=== PATIENT | male | born 1960 | race Caucasian/White ===

== ENCOUNTER 2020-10-05 04:07 | Observation (INO) | payer OTHER ==
[~2020-10-05] VITALS: Ht 177.8 cm; Wt 132.9 kg
[2020-10-05] VITALS (10 sets, daily range): BP systolic 133–170; BP diastolic 53–91
[2020-10-05] MEDS ORDERED: ONDANSETRON 4MG INJ ONE (06:05)
[2020-10-05] MEDS ORDERED: MECLIZINE HCL 25 MG TABLET ONE (06:05)
[2020-10-05] MEDS ORDERED: ONDANSETRON 4MG INJ IVP ONE (06:30)
[2020-10-05] MEDS ORDERED: MECLIZINE HCL 25 MG TABLET PO ONE (06:30)
[2020-10-05 08:08] LABS: BASOPHILS % (AUTO) 0.1 % (0.0-5.0); EOSINOPHILS % (AUTO) 0.3 % (0.0-8.0); HEMATOCRIT 44.6 % (42-54); LYMPHOCYTES % (AUTO) 14.9 % (21.0-51.0); MEAN CORPUSCULAR HEMOGLOBIN 30.2 pg (27.0-33.0); MEAN CORPUSCULAR HGB CONC 31.8 g/dL (32.0-36.0); MEAN CORPUSCULAR VOLUME 94.9 fL (79-99); MONOCYTES % (AUTO) 2.8 % (3.0-13.0); NEUTROPHILS % (AUTO) 81.5 % (40.0-77.0); PLATELET COUNT (AUTO) 222 K/uL (130-400); RED CELL DISTRIBUTION WIDTH 12.3 % (11.0-15.5); WHITE BLOOD COUNT (AUTO) 9.3 K/uL (4.8-10.8)
[2020-10-05 08:26] LABS: ALBUMIN 3.4 g/dL (3.5-5.0); BILIRUBIN,TOTAL 0.3 mg/dL (0.2-1.0); POTASSIUM 4.2 mmol/L (3.5-5.1); TOTAL PROTEIN, SERUM 7.4 g/dL (6.0-8.3)
[2020-10-05 08:40] LABS: B-TYPE NATRIURETIC PEPTIDE 239 pg/mL (0-100)
[2020-10-05] MEDS ORDERED: LACTULOSE 20 GM/30 ML UDCUP PO PRN (10:00)
[2020-10-05] MEDS ORDERED: ACETAMINOPHEN 325 MG TAB PO PRN ×2 (10:00)
[2020-10-05] MEDS ORDERED: ONDANSETRON 4MG INJ IV PRN (10:00)
[2020-10-05 10:05] LABS: INR 0.97 (0.85-1.15); PROTHROMBIN TIME 10.6 SEC (9.6-11.6)
[2020-10-05 10:06] LABS: PARTIAL THROMBOPLASTIN TIME 24.9 SEC (26.3-35.5)
[2020-10-05 10:18] LABS: HEMOGLOBIN A1C 6.8 % (4.0-6.0)
[2020-10-05] MEDS ORDERED: ASPI-1197 PO (10:23)
[2020-10-05 10:26] LABS: THYROID STIMULATING HORMONE 0.37 uIU/mL (0.36-3.74)
[2020-10-05] MEDS ORDERED: METO-409 PO (10:28)
[2020-10-05] MEDS ORDERED: ATOR40TA69 PO (10:28)
[2020-10-05] MEDS ORDERED: MECL-160 PO (10:28)
[2020-10-05] MEDS ORDERED: GLIP10TA9 PO (10:28)
[2020-10-05] MEDS ORDERED: METF500S7 PO (10:28)
[2020-10-05] MEDS ORDERED: SERT-440 PO (10:30)
[2020-10-05] MEDS: ATORVASTATIN 20 MG TABLET PO SCH (20:46)
[2020-10-06] VITALS (14 sets, daily range): BP systolic 111–163; BP diastolic 44–79
[2020-10-06 04:10] LABS: BASOPHILS % (AUTO) 0.3 % (0.0-5.0); EOSINOPHILS % (AUTO) 1.4 % (0.0-8.0); HEMATOCRIT 41.7 % (42-54); LYMPHOCYTES % (AUTO) 29.2 % (21.0-51.0); MEAN CORPUSCULAR HEMOGLOBIN 30.2 pg (27.0-33.0); MEAN CORPUSCULAR HGB CONC 32.1 g/dL (32.0-36.0); MEAN CORPUSCULAR VOLUME 93.9 fL (79-99); MONOCYTES % (AUTO) 6.8 % (3.0-13.0); NEUTROPHILS % (AUTO) 61.9 % (40.0-77.0); PLATELET COUNT (AUTO) 220 K/uL (130-400); RED BLOOD CELL COUNT(AUTO) 4.44 MIL/uL (4.50-6.20); RED CELL DISTRIBUTION WIDTH 12.3 % (11.0-15.5); WHITE BLOOD COUNT (AUTO) 10.4 K/uL (4.8-10.8)
[2020-10-06 04:23] LABS: CREATININE 0.8 mg/dL (0.5-1.5); POTASSIUM 3.8 mmol/L (3.5-5.1)
[2020-10-06] MEDS ORDERED: METOPROLOL SUCCINATE 50 MG TAB.SR.24H PO SCH (09:00)
[2020-10-06] MEDS ORDERED: IOHEXOL-350 50ML VIAL IV ONE (09:29)
[2020-10-06] MEDS: MECLIZINE HCL 25 MG TABLET PO SCH (10:05)
[2020-10-06] MEDS: SERTRALINE HCL 50 MG TABLET PO SCH (10:05)
[2020-10-06] MEDS: ASPIRIN 81MG CHEW TAB PO SCH (10:06)
[2020-10-06] MEDS: PANTOPRAZOLE 40 MG TAB DR PO SCH (10:06)
[2020-10-06] MEDS: INSULIN HUMULIN R 100 UNIT/ML 3ML SQ SCH ×3 (11:18→21:42)
[2020-10-06] MEDS ORDERED: BUPIVACAINE/PF 0.25% 30ML VIAL IJ ONE ×2 (15:36→17:24)
[2020-10-06] MEDS ORDERED: LIDOCAINE HCL 1% MDV 50ML VIAL ONE ×2 (15:36→17:24)
[2020-10-06] MEDS ORDERED: CEFAZOLIN SODIUM 1 GM VIAL ONE (15:36)
[2020-10-06] MEDS ORDERED: MIDAZOLAM HCL 1 MG/ML 2ML VIAL ONE ×2 (16:15→17:01)
[2020-10-06] MEDS ORDERED: FENTANYL CITRATE PF 50 MCG/1 ML 2ML VIAL ONE (16:15)
[2020-10-06] MEDS ORDERED: OCTYL 2-CYANOACRYLATE 1 EACH TP ONE (17:28)
[2020-10-06] MEDS ORDERED: HYDROCODONE/ACETAMINOPHEN 7.5/325 MG TAB PO PRN ×2 (18:00)
[2020-10-06] MEDS: CEFAZOLIN SODIUM 1 GM VIAL IVP SCH (21:40)
[2020-10-06] MEDS: METOPROLOL TARTRATE 25 MG TAB PO SCH (21:40)
[2020-10-06] MEDS: ATORVASTATIN 20 MG TABLET PO SCH (21:40)
[2020-10-07 04:00] VITALS: BP 149/64
[2020-10-07] MEDS: CEFAZOLIN SODIUM 1 GM VIAL IVP SCH (04:46)
[2020-10-07] MEDS: INSULIN HUMULIN R 100 UNIT/ML 3ML SQ SCH ×2 (05:45→11:36)
[2020-10-07 05:47] LABS: BASOPHILS % (AUTO) 0.3 % (0.0-5.0); EOSINOPHILS % (AUTO) 1.5 % (0.0-8.0); HEMATOCRIT 43.8 % (42-54); MEAN CORPUSCULAR HEMOGLOBIN 30.1 pg (27.0-33.0); MEAN CORPUSCULAR VOLUME 94.2 fL (79-99); MONOCYTES % (AUTO) 6.9 % (3.0-13.0); NEUTROPHILS % (AUTO) 64.1 % (40.0-77.0); PLATELET COUNT (AUTO) 198 K/uL (130-400); RED BLOOD CELL COUNT(AUTO) 4.65 MIL/uL (4.50-6.20); RED CELL DISTRIBUTION WIDTH 12.4 % (11.0-15.5); WHITE BLOOD COUNT (AUTO) 9.3 K/uL (4.8-10.8)
[2020-10-07 05:56] LABS: CREATININE 0.8 mg/dL (0.5-1.5)
[2020-10-07 07:53] VITALS: BP 127/52
[2020-10-07] MEDS: METOPROLOL TARTRATE 25 MG TAB PO SCH (10:25)
[2020-10-07] MEDS: PANTOPRAZOLE 40 MG TAB DR PO SCH (10:25)
[2020-10-07] MEDS: ASPIRIN 81MG CHEW TAB PO SCH (10:25)
[2020-10-07] MEDS: SERTRALINE HCL 50 MG TABLET PO SCH (10:25)
[2020-10-07] MEDS: MECLIZINE HCL 25 MG TABLET PO SCH (10:25)
[2020-10-07] MEDS ORDERED: METO25 PO (10:27)
[2020-10-07] MEDS ORDERED: PANT40TA PO (10:27)
[2020-10-07 11:18] VITALS: BP 102/57
[2020-10-07] MEDS ORDERED: PERFLUTREN PROTEIN-A MICROSPHR 0.22 MG/ML VIAL IV ONE (13:59)
[2020-10-17] MEDS ORDERED: ACET-2247 PO (11:09)
== END 2020-10-07 14:00 | disposition home or self-care (01) ==
LOC: EDH 04:07 → EDHIP 09:31 → 4AH 22:10
PROVIDERS: ADMIT Internal Medicine; ATTEND Internal Medicine
DX: R55 Syncope and collapse (principal); I25.10 Atherosclerotic heart disease of native coronary artery without angina pectoris; I10 Essential (primary) hypertension; R11.10 Vomiting, unspecified; R26.9 Unspecified abnormalities of gait and mobility; I35.0 Nonrheumatic aortic (valve) stenosis; I51.9 Heart disease, unspecified; J44.9 Chronic obstructive pulmonary disease, unspecified; E11.9 Type 2 diabetes mellitus without complications; I49.5 Sick sinus syndrome; E78.5 Hyperlipidemia, unspecified; F41.9 Anxiety disorder, unspecified; I44.0 Atrioventricular block, first degree; E66.9 Obesity, unspecified; G51.0 Bell's palsy; G47.33 Obstructive sleep apnea (adult) (pediatric); R29.700 NIHSS score 0; Z86.73 Personal history of transient ischemic attack (TIA), and cerebral infarction without residual deficits; Z95.0 Presence of cardiac pacemaker; Z87.891 Personal history of nicotine dependence; Z95.5 Presence of coronary angioplasty implant and graft; Z95.1 Presence of aortocoronary bypass graft; Z79.82 Long term (current) use of aspirin; Z79.4 Long term (current) use of insulin; Z68.41 Body mass index [BMI] 40.0-44.9, adult
CPT/HCPCS: 33208; 33286; 36415 ×3; 70450; 70470; 71045 ×2; 80048 ×2; 80053; 80061; 82550; 82948 ×6; 83036; 83690; 83735 ×2; 83880; 84443; 84484; 85025 ×3; 85378; 85610; 85730; 93005; 93306 ×2; 93356; 96374; 96376; 99285; C1785; C1894; C1898 ×2; C8929; G0378 ×48; J0690 ×3; J2250 ×2; J2405; J3010; J3490 ×4; Q9956; Q9967; 99156; 99157

== ENCOUNTER 2021-01-05 14:31 | Observation (INO) | payer OTHER ==
[~2021-01-05] VITALS: Ht 177.8 cm; Wt 130.6 kg
[~2021-01-05 14:31] MED LIST: ACET-2247 PO; ASPI-1197 PO; ATOR40TA69 PO; GLIP10TA9 PO; MECL-160 PO; METF500S7 PO; METO25 PO; SERT-440 PO
[2021-01-05] MEDS ORDERED: NITROGLYCERIN 1GM OINT 1 INCH/1GM TD ONE ×2 (15:00→18:13)
[2021-01-05 15:38] LABS: BASOPHILS % (AUTO) 0.3 % (0.0-5.0); EOSINOPHILS % (AUTO) 1.4 % (0.0-8.0); HEMATOCRIT 48.3 % (42-54); LYMPHOCYTES % (AUTO) 32.7 % (21.0-51.0); MEAN CORPUSCULAR HEMOGLOBIN 29.5 pg (27.0-33.0); MEAN CORPUSCULAR HGB CONC 32.1 g/dL (32.0-36.0); MONOCYTES % (AUTO) 6.8 % (3.0-13.0); NEUTROPHILS % (AUTO) 58.6 % (40.0-77.0); PLATELET COUNT (AUTO) 254 K/uL (130-400); RED BLOOD CELL COUNT(AUTO) 5.25 MIL/uL (4.50-6.20); RED CELL DISTRIBUTION WIDTH 13.3 % (11.0-15.5); WHITE BLOOD COUNT (AUTO) 11.4 K/uL (4.8-10.8)
[2021-01-05 15:57] LABS: PROTHROMBIN TIME 10.9 SEC (9.6-11.6)
[2021-01-05 15:58] LABS: PARTIAL THROMBOPLASTIN TIME 26.2 SEC (26.3-35.5)
[2021-01-05 16:03] LABS: CREATININE 1.1 mg/dL (0.5-1.5); POTASSIUM 4.2 mmol/L (3.5-5.1)
[2021-01-05 16:05] LABS: B-TYPE NATRIURETIC PEPTIDE 361 pg/mL (0-100)
[2021-01-05 16:13] LABS: ALBUMIN 3.3 g/dL (3.5-5.0); BILIRUBIN,TOTAL 0.3 mg/dL (0.2-1.0); MAGNESIUM 2.1 mg/dL (1.80-2.40); TOTAL PROTEIN, SERUM 7.3 g/dL (6.0-8.3)
[2021-01-05] MEDS ORDERED: ASPIRIN 81 MG EC TAB PO ONE (18:00)
[2021-01-05] MEDS ORDERED: NITROGLYCERIN 0.4 MG SL TAB SL PRN (18:00)
[2021-01-05 19:06] LABS: HEMOGLOBIN A1C 9.1 % (4.0-6.0)
[2021-01-05 19:18] LABS: APPEARANCE,URINE Clear (CLEAR); BILIRUBIN,URINE Negative (NEGATIVE); COLOR,URINE Yellow (YELLOW); GLUCOSE, URINE (UA) >=1000 mg/dL (NEGATIVE); KETONES,URINE Negative (NEGATIVE); LEUKOCYTE ESTERASE ,URINE Negative (NEGATIVE); NITRATE,URINE Negative (NEGATIVE); OCCULT BLOOD,URINE Negative (NEGATIVE); PROTEIN,URINE Negative (NEGATIVE)
[2021-01-05 19:25] LABS: AMPHET/METH SCREEN,URINE NEGATIVE (NEGATIVE); BARBITURATE SCREEN, URINE NEGATIVE (NEGATIVE); BENZODIAZEPINES SCREEN,URINE NEGATIVE (NEGATIVE); CANNABINOID SCREEN,URINE NEGATIVE (NEGATIVE); COCAINE SCREEN,URINE NEGATIVE (NEGATIVE); OPIATE SCREEN,URINE POSITIVE (NEGATIVE); PHENCYCLIDINE SCREEN,URINE NEGATIVE (NEGATIVE)
[2021-01-05 19:34] LABS: BACTERIA,URINE None Seen /HPF (None Seen); MUCUS,URINE None Seen LPF (None Seen); RBC,URINE 0-1 /HPF (0-1); SQUAMOUS EPITHELIAL CELL,UR 0-2 /HPF (0-2); WBC,URINE 0-1 /HPF (0-1)
[2021-01-06] MEDS ORDERED: ASPIRIN 81 MG EC TAB PO SCH (09:00)
[2021-01-06] MEDS ORDERED: INSULIN HUMULIN R 100 UNIT/ML 3ML SQ SCH (11:30)
[2021-01-06 12:00] VITALS: BP 116/62
== END 2021-01-06 15:00 | disposition home or self-care (01) ==
LOC: EDH 14:31 → EDHIP 17:40 → 4CH 01-06 09:55
PROVIDERS: ADMIT Internal Medicine; ATTEND Internal Medicine
DX: R07.89 Other chest pain (principal); I10 Essential (primary) hypertension; E11.65 Type 2 diabetes mellitus with hyperglycemia; E66.9 Obesity, unspecified; E78.5 Hyperlipidemia, unspecified; I25.10 Atherosclerotic heart disease of native coronary artery without angina pectoris; I44.30 Unspecified atrioventricular block; J44.9 Chronic obstructive pulmonary disease, unspecified; I48.91 Unspecified atrial fibrillation; G47.30 Sleep apnea, unspecified; Z86.73 Personal history of transient ischemic attack (TIA), and cerebral infarction without residual deficits; Z87.891 Personal history of nicotine dependence; Z91.19 Patient's noncompliance with other medical treatment and regimen; Z95.810 Presence of automatic (implantable) cardiac defibrillator; Z79.84 Long term (current) use of oral hypoglycemic drugs; Z68.41 Body mass index [BMI] 40.0-44.9, adult
CPT/HCPCS: 36415; 70450; 71045; 80053; 80305; 81001; 82550; 82948; 83036; 83735; 83874; 83880; 84443; 84484 ×3; 85025; 85610; 85730; 93005; 99285; G0378 ×21